=== PATIENT | female | born 1975 | race Hispanic/Latino ===

== ENCOUNTER → 2018-04-25 | Day surgery (SDC) | payer OTHER ==
[2018-04-19 10:02] LABS: BASOPHILS % 0.4 % (0.0-1.0); EOSINOPHILS # (AUTO) 0.1 (0.0-0.4); EOSINOPHILS % 0.9 % (0.0-6.0); HEMATOCRIT 38.9 % (34.2-44.1); HEMOGLOBIN 13.5 g/dL (12.0-16.0); LYMPHOCYTES # (AUTO) 1.6 (1.0-3.2); LYMPHOCYTES % 23.6 % (18.0-39.1); MEAN CORPUSCULAR HEMOGLOBIN 32.3 pg (28-32); MEAN CORPUSCULAR HGB CONC 34.7 g/dL (31-35); MEAN CORPUSCULAR VOLUME 93.1 fL (81-99); MONOCYTES # (AUTO) 0.6 (0.2-0.8); MONOCYTES % 9.3 % (4.4-11.3); NEUTROPHILS # (AUTO) 4.4 (2.1-6.9); NEUTROPHILS % 64.6 % (38.7-80.0); PLATELET COUNT 381 x10e3/uL (140-360); RED BLOOD COUNT 4.18 x10e6/uL (3.6-5.1); RED CELL DISTRIBUTION WIDTH 12.7 % (11.7-14.4)
[2018-04-19 10:05] LABS: INR 0.94; PROTHROMBIN TIME 13.4 seconds (11.9-14.5)
[2018-04-19 10:06] LABS: PARTIAL THROMBOPLASTIN TIME 26.8 seconds (23.8-35.5)
[2018-04-19 10:15] LABS: ALANINE AMINOTRANSFERASE 28 IU/L (0-55); ALBUMIN 4.2 g/dL (3.5-5.0); ALBUMIN/GLOBULIN RATIO 1.3 (0.8-2.0); ALKALINE PHOSPHATASE 65 IU/L (40-150); ANION GAP 13.4 mmol/L (8-16); BLOOD UREA NITROGEN 5 mg/dL (7-26); BUN/CREATININE RATIO 6 (6-25); CALCIUM 9.8 mg/dL (8.4-10.2); CARBON DIOXIDE 24 mmol/L (22-29); CHLORIDE 102 mmol/L (98-107); EST GLOMERULAR FILTRATION RATE > 60 ML/MIN (60-); GLUCOSE 93 mg/dL (74-118); POTASSIUM 3.4 mmol/L (3.5-5.1); SODIUM 136 mmol/L (136-145)
[~2018-04-25] MED LIST: DICYCLOMINE HCL20 MG PO; FENTANYL CITRATE/PF 100MCG/2 ML INJ ONE; Fenofibrate PO; HYOSCYAMINE SULFATE 0.5 MG/ML INJ ONE; METOCLOPRAMIDE HCL 10 MG/2ML VIAL ONE; MIDAZOLAM HCL 2 MG/2 ML VIAL ONE; OMEPRAZOLE40 MG PO; PROPOFOL IV EMULSION 10 MG/ML 50 ML VIAL ONE; TYLENOL325 MG PO; [UNRECOGNIZED DRUG - OTHER]
--- OUTSIDE RECORDS SUMMARY | 2018-04-25 11:42 | XMS REPORT | Clinical Summary ---
Author Author [facility] Organization [facility] Address Unknown Phone Unavailable Care Team Providers Care Combine Operator Name Role Phone PCP Unavailable Allergies No Known Allergies Medications End Date Status Medication Sig Dispensed Refills Start Date Active meclizine (ANTIVERT) 25 Take 1 tablet 60 tablet 1 mg TabIndications: by mouth 3 7 Vertigo times daily as needed (dizziness). Active sucralfate (CARAFATE) 1 Take 1 tablet 40 tablet 0 gram tabletIndications: by mouth 4 7 Gastritis without times daily. bleeding, unspecified chronicity, unspecified gastritis type, H. pylori infection, Generalized abdominal pain Active traMADol (ULTRAM) 50 mg Take 1 tablet 30 tablet 0 tabletIndications: by mouth 8 Generalized abdominal every 6 hours pain as needed for Pain. Active famotidine (PEPCID) 20 mg Take 1 tablet 30 tablet 0 tabletIndications: by mouth 2 8 Generalized abdominal times daily. pain 04/24/2017 Discontinued famotidine (PEPCID) 20 mg Take 1 tablet 14 tablet 0 tabletIndications: by mouth 2 7 Generalized abdominal times daily. pain 04/25/2017 Discontinued clarithromycin (BIAXIN) Take 1 tablet 28 tablet 0 500 mg tabletIndications: by mouth 2 7 Gastritis without times daily bleeding, unspecified for 14 days. chronicity, unspecified gastritis type, H. pylori infection 04/25/2017 Discontinued omeprazole (PRILOSEC) 20 Take 1 28 capsule 0 mg delayed release capsule by 7 capsuleIndications: mouth 2 times Gastritis without daily. bleeding, unspecified chronicity, unspecified gastritis type, H. pylori infection 04/25/2017 Discontinued amoxicillin (AMOXIL) 500 Take 2 56 capsule 0 12/25/201 mg capsuleIndications: capsules by 7 Gastritis without mouth 2 times bleeding, unspecified daily for 14 chronicity, unspecified days. gastritis type, H. pylori infection 04/25/2017 Discontinued bismuth subsalicylate 262 Take by mouth 56 tablet 0 mg ChewIndications: 4 times 7 Gastritis without daily. bleeding, unspecified chronicity, unspecified gastritis type, H. pylori infection 07/18/2017 famotidine (PEPCID) 40 mg Take 1 tablet 30 tablet 0 tabletIndications: by mouth 8 Generalized abdominal daily for 30 pain days. 11/13/2017 ondansetron (ZOFRAN) 4 mg Take 1 tablet 20 tablet 0 tabletIndications: by mouth 8 Generalized abdominal every 8 hours pain as needed for up to 7 days for Nausea. 11/13/2017 Aluminum Hydrox-Magnesium Take 10 mL by 150 mL 0 Carb (GAVISCON) 95-358 mouth every 6 8 mg/15 mL oral hours as suspensionIndications: needed for up Gastroesophageal reflux to 5 days for disease without Indigestion. esophagitis Active Problems Problem Noted Date H. pylori infection 04/24/2017 Abdominal pain 12/11/2016 Chest pain in adult 12/11/2016 Non-intractable vomiting with nausea Vertigo Generalized abdominal pain Gastritis without bleeding Encounters Care Team Description Date Type Specialty Anderson Horner MD 11/11/2017 Emergency Emergency Medicine Denis Núñez MD Gastroesophageal reflux disease without esophagitis (Primary Dx); Upper abdominal pain; Early satiety; Nausea 11/08/2017 Emergency Emergency Medicine Ike Mcelroy PA Generalized abdominal pain (Primary Dx) 11/05/2017 Emergency Emergency Medicine - 11/06/2017 Jaspreet Duran PA Chest pain in adult (Primary Dx); Generalized abdominal pain; Pain of upper abdomen 06/17/2017 Emergency Emergency Medicine - 06/18/2017 Jaspreet Christianson PA Gastritis without bleeding, unspecified chronicity, unspecified gastritis type (Primary Dx); H. pylori infection; Generalized abdominal pain 04/24/2017 Emergency Emergency Medicine - 04/25/2017 after 04/24/2017 Social History Date Tobacco Use Types Packs/Day Years Used Never Smoker Smokeless Tobacco: Never Used Alcohol Use Drinks/Week oz/Week Comments No Sex Assigned at Date Recorded Not on file Industry Job Start Date Occupation Not on file Not on file Not on file Travel End Travel History Travel Start No recent travel history available. Last Filed Vital Signs Time Taken Vital Sign Reading 11/11/2017 1:32 AM CDT Blood Pressure 119/83 11/11/2017 1:32 AM CDT Pulse 94 11/11/2017 1:32 AM CDT Temperature 36.6 C (97.9 F) 11/11/2017 1:32 AM CDT Respiratory Rate 18 11/11/2017 1:32 AM CDT Oxygen Saturation 99% - Inhaled Oxygen - Concentration 11/08/2017 8:55 AM CDT Weight 62.1 kg (136 lb 14.4 oz) - Height - - Body Mass Index - Plan of Treatment Health Maintenance Due Date Last Done Comments Cervical Cancer Scrn (3 1995 Yrs) Breast Cancer Scrn 2014 (Yearly) IMM Influenza Seasonal 01/29/2018Jan to June (>/=19 yrs) Procedures Comments Procedure Name Priority Date/Time Associated Diagnosis 12 LEAD EKG Routine 11/11/2017 1:56 AM CDT BEDSIDE ULTRASOUND Routine 11/08/2017 Upper abdominal pain 12:46 PM CDT Nausea UA CHEMISTRIES STAT 11/08/2017 10:35 AM CDT VBG POC Routine 11/08/2017 10:26 AM CDT BMP POC Routine 11/08/2017 10:25 AM CDT LIVER PROFILE STAT 11/08/2017 10:20 AM CDT LIPASE STAT 11/08/2017 10:[address] ABDOMEN AND PELVIS STAT 11/05/2017 Generalized abdominal CONTRAST 2:08 PM CDT pain BMP POC Routine 11/05/2017 11:09 AM CDT HIV-1/HIV-2 ROUTINE STAT 11/05/2017 SCREENING 11:04 AM CDT LIPASE STAT 11/05/2017 11:04 AM CDT LIVER PROFILE STAT 11/05/2017 11:04 AM CDT CBC/DIFF STAT 11/05/2017 11:04 AM CDT URINE CULTURE Routine 11/05/2017 10:58 AM CDT TEST STAT 11/05/2017 10:58 AM CDT UA CHEMISTRIES STAT 11/05/2017 10:58 AM CDT 12 LEAD EKG Routine 11/05/2017 10:[address] ABDOMEN AND PELVIS STAT 06/18/2017 Pain of upper abdomen CONTRAST 4:45 AM ESCAPEMENT MAKER XRAY CHEST 2 VIEWS STAT 06/18/2017 Chest pain in adult 12:45 AM ESCAPEMENT MAKER 12 LEAD EKG STAT 06/18/2017 12:10 AM ESCAPEMENT MAKER TROPONIN I POC Routine 06/18/2017 12:03 AM ESCAPEMENT MAKER TEST STAT 06/18/2017 12:00 AM ESCAPEMENT MAKER UA CHEMISTRIES STAT 06/18/2017 12:00 AM ESCAPEMENT MAKER BMP POC Routine 06/17/2017 11:16 PM ESCAPEMENT MAKER LIPASE STAT 06/17/2017 10:50 PM ESCAPEMENT MAKER LIVER PROFILE STAT 06/17/2017 10:50 PM ESCAPEMENT MAKER CBC/DIFF STAT 06/17/2017 10:50 PM ESCAPEMENT MAKER OCCULT BLOOD ICT STAT 04/24/2017 10:37 PM ESCAPEMENT MAKER BMP POC Routine 04/24/2017 5:04 PM ESCAPEMENT MAKER 12 LEAD EKG Routine 04/24/2017 5:02 PM ESCAPEMENT MAKER LIVER PROFILE STAT 04/24/2017 5:02 PM ESCAPEMENT MAKER LIPASE STAT 04/24/2017 5:02 PM ESCAPEMENT MAKER CBC/DIFF STAT 04/24/2017 5:02 PM ESCAPEMENT MAKER UA CHEMISTRIES STAT 04/24/2017 5:01 PM ESCAPEMENT MAKER after 04/24/2017 Results * 12 LEAD EKG (11/11/2017 1:56 AM CDT) 12 LEAD EKG FOR [facility] Hari Hubbard [facility] Test Date:2017-11-11 Pat Name: AMANDA Whytepartment: Room: Gender: F Rn Access: [id number] :1976-0 06-04 Requested By: Order Number: Abdirizak kaye MD: Víctor West Measurements Intervals Harmony Rate: 90 P:55 WV: 178 QRS: 53 QRSD: 94 T:44 QT: 352 QTc:432 Interpretive Statements SINUS RHYTHM INCOMPLETE RIGHT BUNDLE BRANCH BLOCK NONSPECIFIC T WAVE ABNORMALITY Electronically Signed On 11-15-17 16:13:43 CDT by Víctor West Performing Organization Address City/State/Zipcode Phone Number SMS * BEDSIDE ULTRASOUND (11/08/2017 12:46 PM CDT) Narrative Performed At Fred Chaudhari NP 11/08/20171:04 PM Bedside Ultrasound Date/Time: 11/08/2017 12:59 PM Performed by: FRED CHAUDHARI Authorized by: FRED CHAUDHARI Consent: Consent obtained:Verbal Indications: Indications:Epigastric, upper abdominal pain; visualize gallbladder Post-procedure details: Patient tolerance of procedure:Tolerated well, no immediate complications Comments: No sonographic barron's sign, no stones/sludge, no wall thickening, no perichole fluid * UA CHEMISTRIES (11/08/2017 10:35 AM CDT) Only the most recent of 4 results within the time period is included. Color Straw [facility] 2 Clarity Clear [facility] 2 Spec [place] 1.004 1.001 - 1.035 [facility] 2 pH 7.0 5 - 8 [facility] 2 Protein Negative NEG [facility] 2 Glucose Negative NEG [facility] 2 Ketone Negative NEG [facility] 2 Bilirubin Negative NEG [facility] 2 Nitrate Negative NEG [facility]IN-STATION 2 Urobilinogen <1.0 0.2 - 1.0 EU/dL [facility]IN-STATION 2 Leukocyte Negative NEG [facility] 2 Blood Negative NEG [facility] 2 Specimen Urine Performing Organization Address [facility] Phone Number MISYS [facility] MAINSTATION 2 * VBG POC (11/08/2017 10:26 AM CDT) pH, James POC 7.40 7.33 - 7.43 [facility]IN-[facility]ATION 1 pCO2, James POC 44.7 38.0 - 50.0 mm Hg [facility] 1 pO2, James POC 19 (L) 50 - 75 mm Hg [facility] 1 Base Excess, 3 mmol/L [facility] POC MAIN-STATION 1 HCO3, James POC 28.0 (H) 22.0 - 26.0 mmol/L [facility] 1 % Sat, James POC 29 (L) 60 - 85 % [facility] 1 Lactic Acid, 1.25 0.4 - 2.0 mmol/L [facility] POC MAIN[facility]ATION 1 TCO2, JAMES POC 29 21 - 32 mmol/L [facility] MAIN-STATION 1 Performing Organization Address [facility] Phone Number [facility] 1 * BMP POC (11/08/2017 10:25 AM CDT) Only the most recent of 4 results within the time period is included. CO2 POC 26 21 - 32 mmol/L [facility] MAIN-STATION 1 Chloride POC 100 98 - 107 mmol/L [facility] 1 Potassium POC 4.1 3.50 - 5.10 mmol/L [facility] 1 Sodium POC 139 136 - 145 mmol/L [facility] 1 Glucose POC 85 74 - 106 mg/dL [facility] 1 Urea Nitrogen <3 (L) 7 - 18 mg/dL [facility] POC [facility] 1 Creatinine POC 0.5 (L) 0.6 - 1.3 mg/dL [facility] 1 Calcium Ionized 1.24 1.15 - 1.29 mmol/L [facility] POC [facility] 1 Hemoglobin POC 15.0 12.0 - 16.0 g/dL [facility] 1 Hematocrit POC 44.0 37.0 - 47.0 % [facility] MAIN-STATION 1 GFR, Estimated >60 mL/min/1.73 m2 [facility] MAIN-STATION 1 GFR, Estim, >60 mL/min/1.73 m2 LB Afr-Am MAIN-STATION 1 Performing Organization Address [facility] Phone Number MISYS [facility] MAIN-STATION 1 * LIVER PROFILE (11/08/2017 10:20 AM CDT) Only the most recent of 4 results within the time period is included. T Protein 8.8 (H) 6.4 - 8.2 g/dL [facility]IN-STATION 4 Albumin 4.4 3.4 - 5.0 g/dL [facility]IN-STATION 4 T Bilirubin 0.4 0.2 - 1.0 mg/dL [facility] 4 Alk Phos 124 (H) 45 - 117 U/L [facility]IN[facility]STATION 4 AST 34 15 - 37 U/L [facility] 4 ALT 98 (H) 12 - 78 U/L [facility] 4 D Bilirubin <0.1 0.0 - 0.2 mg/dL [facility] 4 Specimen Blood Performing Organization Address [facility] Phone Number MISYS [facility] MAIN-STATION 4 * LIPASE (11/08/2017 10:20 AM CDT) Only the most recent of 4 results within the time period is included. Lipase 146 73 - 393 U/L [facility]IN-[facility]ATION 4 Specimen Blood Performing Organization Address [facility] Phone Number MISYS [facility] MAIN-STATION 4 * CT ABDOMEN AND PELVIS CONTRAST (11/05/2017 2:08 PM CDT) Only the most recent of 2 results within the time period is included. Impressions Performed At IMPRESSION: SMS 1.No acute intra-abdominal or intrapelvic abnormalities. 2.Persistent cystic structure in the left adnexa which measure approximately 3.2 cm (compared to 2.[address] 12/12/2016) could represent left hydrosalpinx versus left ovarian/paraovarian cyst. Nonemergent follow-up pelvic ultrasound could be of help. 3.Prominent right ureter, most likely related to distended urinary bladder. If the report is "FINALIZED" it indicates that the attending/staff radiologist has reviewed the images and agrees with the resident's interpretation. Dictated By: Harika Jiang MD, 11/05/2017 3:16 PM I have reviewed the study and agree with the findings in this report. Signed By: Clifton Bay MD, 11/05/2017 3:34 PM Narrative Performed At EXAM: CT Abdomen and pelvic WITH contrast SMS INDICATION: abdominal pain COMPARISON: Abdomen CT 06/18/2017 TECHNIQUE: Abdomen and pelvis were scanned utilizing a multidetector helical scanner from the lung base to the pubic symphysis after administration of IV contrast. Coronal and sagittal reformations were obtained. Routine protocol was performed. Scan was performed when during portal venous phase. IV CONTRAST: 150 mL of Omnipaque 300 ORAL CONTRAST: Water COMPLICATIONS: None RADIATION DOSE: Total DLP: 682 mGy*cm Estimated effective dose: (DLP x 0.015 x size factor) mSv CTDIvol has been reviewed. It is below the limits set by the Radiation Protocol Committee (RPC). FINDINGS: LINES and TUBES: None. LOWER THORAX:Minimal subsegmental atelectasis in the right middle lobe. Otherwise, unremarkable. HEPATOBILIARY:No focal hepatic lesions. No biliary ductal dilation. GALLBLADDER: No radio-opaque stones or sludge.No wall thickening. SPLEEN: No splenomegaly. PANCREAS: No focal masses or ductal dilatation. ADRENALS: No adrenal nodules KIDNEYS/URETERS: Kidneys enhance symmetrically.No hydronephrosis. Prominent right ureter.No cystic or solid mass lesions.No stones. GI TRACT: No abnormal distention, wall thickening, or evidence of bowel obstruction. Appendix is normal. Moderate volume of stool within the colon. PELVIC ORGANS/BLADDER: Mildly distended urinary bladder. Persistent cystic structure in the left adnexa measuring approximately 3.2 cm. LYMPH NODES: No lymphadenopathy. VESSELS: Unremarkable. PERITONEUM / RETROPERITONEUM: No free air or fluid. BONES: Unremarkable. SOFT TISSUES: Unremarkable. Procedure Note Interface, Rad/Mammog In - 11/05/2017 3:39 PM CDT EXAM: CT Abdomen and pelvic WITH contrast INDICATION: abdominal pain COMPARISON: Abdomen CT 06/18/2017 TECHNIQUE: Abdomen and pelvis were scanned utilizing a multidetector helical scanner from the lung base to the pubic symphysis after administration of IV contrast. Coronal and sagittal reformations were obtained. Routine protocol was performed. Scan was performed when during portal venous phase. IV CONTRAST: 150 mL of Omnipaque 300 ORAL CONTRAST: Water COMPLICATIONS: None RADIATION DOSE: Total DLP: 682 mGy*cm Estimated effective dose: (DLP x 0.015 x size factor) mSv CTDIvol has been reviewed. It is below the limits set by the Radiation Protocol Committee (RPC). FINDINGS: LINES and TUBES: None. LOWER THORAX: Minimal subsegmental atelectasis in the right middle lobe. Otherwise, unremarkable. HEPATOBILIARY: No focal hepatic lesions. No biliary ductal dilation. GALLBLADDER: No radio-opaque stones or sludge. No wall thickening. SPLEEN: No splenomegaly. PANCREAS: No focal masses or ductal dilatation. ADRENALS: No adrenal nodules KIDNEYS/URETERS: Kidneys enhance symmetrically. No hydronephrosis. Prominent right ureter. No cystic or solid mass lesions. No stones. GI TRACT: No abnormal distention, wall thickening, or evidence of bowel obstruction. Appendix is normal. Moderate volume of stool within the colon. PELVIC ORGANS/BLADDER: Mildly distended urinary bladder. Persistent cystic structure in the left adnexa measuring approximately 3.2 cm. LYMPH NODES: No lymphadenopathy. VESSELS: Unremarkable. PERITONEUM / RETROPERITONEUM: No free air or fluid. BONES: Unremarkable. SOFT TISSUES: Unremarkable. IMPRESSION IMPRESSION: 1. No acute intra-abdominal or intrapelvic abnormalities. 2. Persistent cystic structure in the left adnexa which measure approximately 3.2 cm (compared to 2.[address] 12/12/2016) could represent left hydrosalpinx versus left ovarian/paraovarian cyst. Nonemergent follow-up pelvic ultrasound could be of help. 3. Prominent right ureter, most likely related to distended urinary bladder. If the report is "FINALIZED" it indicates that the attending/staff radiologist has reviewed the images and agrees with the resident's interpretation. Dictated By: Harika Jiang MD, 11/05/2017 3:16 PM I have reviewed the study and agree with the findings in this report. Signed By: Clifton Bay MD, 11/05/2017 3:34 PM Performing Organization Address [facility] Phone Number SMS * HIV-1/HIV-2 ROUTINE SCREENING (11/05/2017 11:04 AM CDT) HIV-1/HIV-2 Negative NEG BT OUTPATIENT DRAW 2 Performing Organization Address City/[facility] Phone Number MISYS BT OUTPATIENT DRAW 2 * CBC/DIFF (11/05/2017 11:04 AM CDT) Only the most recent of 3 results within the time period is included. WBC 8.1 4.5 - 11.0 K/uL [facility] MAIN-STATION 2 RBC 4.21 4.20 - 5.40 M/uL [facility] 2 Hemoglobin 13.8 12.0 - 16.0 g/dL [facility]IN[facility] 2 Hematocrit 39.2 37.0 - 47.0 % BT [facility]IN[facility] 2 MCV 93 (H) 82 - 92 fL [facility]IN[facility]STATION 2 MCH 32.8 (H) 27.0 - 32.0 pg BT [facility]IN-STATION 2 MCHC 35.2 32.0 - 36.0 g/dL [facility] 2 RDW 43.7 36.4 - 46.3 fL BT [facility]IN[facility]STATION 2 Platelet 424 (H) 150 - 400 K/uL [facility] MAIN-STATION 2 Mean Platelet 10.2 9.4 - 12.4 fL BT [facility]ATION Volume 2 Percent NRBC 0.0 BT MAIN-STATION 2 Absolute NRBC 0.00 BT MAIN-STATION 2 Neutrophil 70.6 (H) 34.0 - 70.0 % BT MAIN-STATION 2 Lymphocyte 19.1 (L) 20.0 - 50.0 % BT MAIN-STATION 2 Monocyte 8.4 5.0 - 12.0 % BT MAIN-STATION 2 Eosinophil 0.4 (L) 0.7 - 5.0 % BT MAIN-STATION 2 Basophil 0.4 0.1 - 1.2 % BT MAIN-STATION 2 Pct Immat Gran 1.1 (H) 0.0 - 0.5 BT MAIN-STATION 2 Neutrophil, Abs 5.73 1.56 - 6.13 K/uL BT MAIN-STATION 2 Lymphocyte, Abs 1.55 1.18 - 3.74 K/uL BT MAIN-STATION 2 Monocyte, Abs 0.68 (H) 0.24 - 0.36 K/uL BT MAIN-STATION 2 Eosinophil, Abs 0.03 (L) 0.04 - 0.36 K/uL BT MAIN-STATION 2 Basophil, Abs 0.03 0.01 - 0.08 K/uL BT MAIN-STATION 2 Absol Immat 0.09 (H) 0.00 - 0.03 K/uL BT MAIN-STATION Gran 2 Specimen Blood Performing Organization Address [facility] Phone Number CARLAYS BT MAIN-STATION 2 * TEST (11/05/2017 10:58 AM CDT) Only the most recent of 2 results within the time period is included. Negative BT MAIN-STATION 3 Specimen Urine Performing Organization Address [facility] Phone Number LAURA BT MAIN-STATION 3 * URINE CULTURE (11/05/2017 10:58 AM CDT) Spec Clean catch urine BT MICROBIOLOGY Description Order Comments None BT MICROBIOLOGY Culture Resembles mixed uro-genital BT MICROBIOLOGY nae Report Status Final 11/07/2017 BT MICROBIOLOGY Specimen Urine clean catch Performing Organization Address [facility] Phone Number LAURA BT MICROBIOLOGY * 12 LEAD EKG (11/05/2017 10:56 AM CDT) 12 LEAD EKG FOR [facility] Test Date:2017-11-05 [facility]: Gender: F Rn Access: [id number] :1976-0 2-04 Requested By: Order Number: [id number] kaye MD: Marisa Wilson Measurements Intervals Harmony Rate: 93 P:66 WV: 151 QRS: 56 QRSD: 88 T:43 QT: 325 QTc:405 Interpretive Statements SINUS RHYTHM Electronically Signed On 11-05-17 11:44:07 CDT by Marisa Wilson Performing Organization Address [facility] Phone Number SMS * XRAY CHEST 2 VIEWS (06/18/2017 12:45 AM ESCAPEMENT MAKER) Impressions Performed At IMPRESSION: [facility] No acute thoracic abnormality. Dictated By: Kalyani Moore MD, 06/18/2017 12:44 AM I have reviewed the study and agree with the findings in this report. Signed By: Breanna Alston MD, 06/18/2017 2:35 AM Narrative Performed At EXAMINATION:XRAY CHEST 2 VIEWS, Frontal and lateral [facility] INDICATION: cp COMPARISON:Chest radiograph 12/11/2016 FINDINGS: TUBES/LINES:None LUNGS:No consolidations or edema. PLEURA:No effusions or pneumothorax. HEART/MEDIASTINUM:Normal cardiomediastinal silhouette. MUSCULOSKELETAL:No acute findings. UPPER ABDOMEN: Normal Procedure Note Interface, Rad/Mammog In - 06/18/2017 2:40 AM ESCAPEMENT MAKER EXAMINATION: XRAY CHEST 2 VIEWS, Frontal and lateral INDICATION: cp COMPARISON: Chest radiograph 12/11/2016 FINDINGS: TUBES/LINES: None LUNGS: No consolidations or edema. PLEURA: No effusions or pneumothorax. HEART/MEDIASTINUM: Normal cardiomediastinal silhouette. MUSCULOSKELETAL: No acute findings. UPPER ABDOMEN: Normal IMPRESSION IMPRESSION: No acute thoracic abnormality. Dictated By: Kalyani Moore MD, 06/18/2017 12:44 AM I have reviewed the study and agree with the findings in this report. Signed By: Breanna Alston MD, 06/18/2017 2:35 AM Performing Organization Address [facility] Phone Number SMS * 12 LEAD EKG (06/18/2017 12:10 AM ESCAPEMENT MAKER) 12 LEAD EKG FOR [facility] Test Date:2017-06-18 Pat Name: [facility]ANDA [facility]S [facility] Room: Gender: F Rn Access: :1976-0 2-04 Requested By: Order Number: [id number] mikki MD: Kena Bray MD Measurements Intervals Harmony Rate: 89 P:67 WV: 191 QRS: 68 QRSD: 86 T:59 QT: 351 QTc:428 Interpretive Statements SINUS RHYTHM Electronically Signed On 06-19-17 10:17:42 ESCAPEMENT MAKER by Kena Bray MD Performing Organization Address [facility] Phone Number SMS * TROPONIN I POC (06/18/2017 12:03 AM ESCAPEMENT MAKER) Troponin POC 0.01 0.00 - 0.08 ng/mL BT MAIN-STATION 1 Performing Organization Address [facility] Phone Number MISYS BT MAIN-STATION 1 * OCCULT BLOOD ICT (04/24/2017 10:37 PM ESCAPEMENT MAKER) Occult Blood Negative NEG BT MICROBIOLOGY ICT Specimen Stool Performing Organization Address [facility] Phone Number MISYS BT MICROBIOLOGY * 12 LEAD EKG (04/24/2017 5:02 PM ESCAPEMENT MAKER) 12 LEAD EKG FOR [facility] Test Date:2017-04-24 Pat Name: AMANDA CARDENAS LAZODepartment: Room: Gender: F Rn Access: [id number] :[birth year] Requested By: Order Number: [id number] kaye MD: Shakeel Che M.D. Measurements Intervals Harmony Rate: 100 P: 60 WV: 135 QRS: 77 QRSD: 79 T:68 QT: 328 QTc:424 Interpretive Statements SINUS TACHYCARDIA ABNORMAL RHYTHM ECG Electronically Signed On 04-24-17 17:24:43 ESCAPEMENT MAKER by Shakeel Che M.D. Performing Organization Address City/State/Zipcode Phone Number SMS after 04/24/2017 Insurance Type Payer Benefit Subscriber ID Effective Phone Address Plan / Dates Group [facility] xxxxxxxxxxxx 2017-P [phone] [id number] [facility] [place] [phone]
--- OUTSIDE RECORDS SUMMARY | 2018-04-25 11:42 | XMS REPORT ---
[facility] Address Unknown Phone Unavailable Care Team Providers Care [employer] Name Role Phone UNKNOWN, REFFERING PP Unavailable MARISA, TOY Unavailable Unavailable Problems This patient has no known problems. Allergies, Adverse Reactions, Alerts This patient has no known allergies or adverse reactions. Medications This patient has no known medications. Encounters Start Date/Time End Date/Time Encounter Type Admission Type Attending [facility] Facility Care Department Encounter ID 2017-11-11 04:30:34 2017-11-11 04:30:34 Emergency [facility] [id number] 2017-11-08 09:44:26 2017-11-08 09:44:26 Emergency [facility] [id number] 2017-11-05 22:40:57 2017-11-05 22:40:57 Emergency [facility] [id number] 2017-11-05 13:15:01 2017-11-05 13:15:01 Outpatient [facility] [id number] 2017-06-18 03:39:37 2017-06-18 03:39:37 Emergency [facility] [id number] 2017-06-18 00:33:30 2017-06-18 00:33:30 Emergency [facility] [id number] 2017-06-17 22:13:48 2017-06-17 22:13:48 Emergency [facility] [id number] 2017-04-24 19:05:48 2017-04-24 19:05:48 [facility] [id number] 2016-12-12 02:10:15 2016-12-12 02:10:15 Emergency [facility] [id number] 2016-12-12 01:46:43 2016-12-12 01:46:43 Emergency [facility] [id number] 2016-12-11 23:40:06 2016-12-11 23:40:06 Emergency [facility] [id number] 2016-12-11 23:12:38 2016-12-11 23:12:38 Emergency [facility] [id number] Results Test Description Test Time Test Comments Text Results Atomic Results Result Comments BREAST ULTRASOUND BILATERAL 2018-03-27 15:04:07 - BREAST ULTRASOUND BILATERALULTRASOUND OF BOTH BREASTS AND BOTH AXILLA: 03/27/2018CLINICAL: Abnormal mammogram. Comparison is made to exam dated 02/24/2018 mammogram - [facility] Real-time ultrasound of both breasts and both axilla was performed. There is a 1.2 cm oval mass in the left breast at 11 o'clock, 5 cm from the nipple. Color flow imaging demonstrates that there is no increase in vascularity. No abnormalities were seen sonographically in either axilla. Benign cysts and dilated ducts were seen bilaterally. Clinical breast exam was unremarkable. IMPRESSION: PROBABLY BENIGN - FOLLOW-UP RECOMMENDEDThe 1.2 cm oval mass in the left breast is probably benign. A follow-up mammogram and an ultrasound in 6 months is recommended to demonstrate stability. Iris Zelaya dm/:03/27/2018 15:04:07 Farmworker Fur: Radha Vasquez RDMS , [facility]: Short Term Follow Up Ultrasound BI-RADS: 3 Probably benign DIAG MAMM RIGHT YKOASTA CAD DIGITAL 2018-03-27 15:02:33 - DIAG MAMM RIGHT YOKASTA CAD DIGITALUNILATERAL RIGHT DIGITAL DIAGNOSTIC MAMMOGRAM 3D/2D WITH CAD: 03/27/2018CLINICAL: Recall from screening. Digital breast tomosynthesis was performed in addition to routine CC and MLO views. Current mammographic images were evaluated by either a Bustle M-Vu or a incrediblue ImageChecker CAD (computer aided detection system). Comparison is made to exam dated [facility] The tissue of the right breast is heterogeneously dense. This may lower the sensitivity of mammography. No suspicious mass, architectural distortion, malignant type calcification, or lymph node abnormality detected. IMPRESSION: INCOMPLETE ASSESSMENT: ADDITIONAL IMAGING EVALUATION RECOMMENDEDUltrasound pending for additional evaluation. Iris Hall M.D. dm/penrad:03/27/2018 15:02:33 Entry: - 03/27/2018 15:05:24Imaging Technologist: Conchita Petty , [facility]ENTERMamm[facility] BI-RADS: 0 Indeterminate SCR MAMM BILATERAL YOKASTA CAD DIGITAL 2018-02-26 13:48:37 - SCR MAMM BILATERAL YOKASTA CAD DIGITALBILATERAL FIRST EVER DIGITAL SCREENING MAMMOGRAM 3D/2D WITH CAD: 02/24/2018CLINICAL: Asymptomatic. Digital breast tomosynthesis was performed in addition to routine CC and MLO views. Current mammographic images were evaluated by either a VuCOMP M-Vu or a incrediblue ImageChecker CAD (computer aided detection system). No prior exams were available for comparison. B aseline.The breasts are heterogeneously dense which may obscure small masses.There is a 3 mm asymmetry in the medial right breast at anterior depth seen on the craniocaudal view only 3 cm from the nipple. No other significant masses, calcifications, or other findings are seen in either breast. IMPRESSION: INCOMPLETE ASSESSMENT: ADDITIONAL IMAGING EVALUATION RECOMMENDEDThe 3 mm asymmetry in the medial right breast at anterior depth is indeterminate. Additional views with possible ultrasound are recommended. Shona Parnell D.O. al/:02/26/2018 13:48:37 Farmworker Fur: Kristie Matthews, [facility]-FWletter sent: Additional Imaging Mammogram BI-RADS: 0 Indeterminate SCR MAMM BILATERAL YOKASTA CAD DIGITAL 2018-02-26 13:48:37 - SCR MAMM BILATERAL YOKASTA CAD DIGITALBILATERAL FIRST EVER DIGITAL SCREENING MAMMOGRAM 3D/2D WITH CAD: 02/24/2018CLINICAL: Asymptomatic. Digital breast tomosynthesis was performed in addition to routine CC and MLO views. Current mammographic images were evaluated by either a VuCOMP M-Vu or a incrediblue ImageChecker CAD (computer aided detection system). No prior exams were available for comparison. B aseline.The breasts are heterogeneously dense which may obscure small masses.There is a 3 mm asymmetry in the medial right breast at anterior depth seen on the craniocaudal view only 3 cm from the nipple. No other significant masses, calcifications, or other findings are seen in either breast. IMPRESSION: INCOMPLETE ASSESSMENT: ADDITIONAL IMAGING EVALUATION RECOMMENDEDThe 3 mm asymmetry in the medial right breast at anterior depth is indeterminate. Additional views with possible ultrasound are recommended. Shona becerril/:02/26/2018 13:48:37 Farmworker Fur: Kristie Matthews, [facility]FWletter sent: Additional Imaging Mammogram BI-RADS: 0 Indeterminate [id number]&PELVIS W/CONTRAST 2017-02-12 07:14:33 DICTATION LOCATION: [id number] INFORMATION:Abd pain-RLQ, and LLQ COMPARISON: None availablePROCEDURE: CT of the Abdomen and Pelvis was performed with intravenous contrast. Intravenous contrast: 100 ml Isovue 300 Oral contrast: positive contrast was administered.Sagittal and coronal reformats were performed.One or more of the following dose reduction techniques were used:Automated exposure control, adjustment of the mA and/or kV according topatient size, and/or utilization of iterative reconstruction technique. FINDINGS:LOWER CHEST: Within normal limits.LIVER: Within normal limits.BILE DUCTS: Normal caliber.GALLBLADDER: Within normal limits.SPLEEN: Within normal limits.PANCREAS: Within normal limits.ADRENALS: Within normal limits.KIDNEYS/URETERS: Within normal limits.BLADDER: Interval bladder wall thickening, most evident at the dome.REPRODUCTIVE ORGANS: Small amount of fluid and fat stranding within thepelvis.BOWEL: No bowel obstruction. Appendix is remarkablePERITONEUM: No ascites.VESSELS: Within normal limits.RETROPERITONEUM: No lymphadenopathy. ABDOMINAL WALL: Within normal limits.BONES: Within normal limits.IMPRESSION: Pelvic fat stranding and trace ascites. There is also wall thickening atthe urinary bladder dome. Urologic or gynecologic infection/inflammationis suspected. Urinalysis Complete 2017-02-12 03:01:00 Color (test code=COLOR) Straw Yellow,Straw,Pl yellow Clarity (test code=CLAR) Clear Clear Specific Geary (test code=SPGR) 1.002 1.001-1.035 pH (test code=PH) 7.0 5.0-9.0 Ketone (test code=KET) Negative mg/dL Negative Glucose (test code=GLUCUR) Negative mg/dL Negative Protein (test code=PROT) Negative mg/dL Negative Bilirubin (test code=BILI) Negative mg/dL Negative Occult Blood (test code=UDOB) Small Negative Urobilinogen (test code=UROB) 0.2 mg/dL 0.2-1.0 Nitrite (test code=NIT) Negative Negative Leuk Esterase (test code=LEUK) Large Negative Micros Exam (test code=MEXAM) Indicated Epithelial Cells (test code=EPI) Few /LPF 0-30 WBC, Urine (test code=UWBC) 6-10 /HPF 0-5 RBC, Urine (test code=URBC) 3-5 /HPF 0-5 Bacteria (test code=BACT) Few /HPF CBC with [id number] 02:46:00* Test Item Value Reference Range Comments WBC (test code=WBC) 9.1 K/cumm 4.4-10.5 RBC (test code=RBC) 4.14 M/cumm 3.75-5.20 Hemoglobin (test code=HGB) 12.6 gm/dL 12.2-14.8 Hematocrit (test code=HCT) 37.8 % 36.5-44.4 MCV (test code=MCV) 91.4 fL 80-100 MCH (test code=MCH) 30.4 pg 27.0-32.5 MCHC (test code=MCHC) 33.2 g/dL 32.0-37.5 RDW (test code=RDW) 13.0 % 11.5-14.5 Platelet Count (test code=PLTCT) 434 K/cumm 140-440 MPV (test code=MPV) 8.5 fL Diff Method (test code=DIFFM) Auto Neutrophil (test code=NEUT) 66.6 % 36-70 Lymphocyte (test code=LYMPH) 25.2 % 12-44 Monocyte (test code=MONO) 7.2 % 0-11 Eosinophil (test code=EOS) 0.7 % 0-7 Basophil (test code=BASO) 0.2 % 0-2 Neutro Abs (test code=ANEUT) 6.0 K/cumm 1.6-7.4 Lymph Abs (test code=ALYMPH) 2.3 K/cumm 0.5-4.6 [place] Abs (test code=AMONO) 0.7 K/cumm 0.0-1.2 Eos Abs (test code=AEOS) 0.06 K/cumm 0.00-0.74 Baso Abs (test code=ABASO) 0.0 K/cumm 0.00-0.21 [id number] 02:44:00* Test Item Value Reference Range Comments Lipase (test code=LIP) 33 U/L 13-60 Comprehensive Metabolic [id number] 02:44:00* Test Item Value Reference Range Comments Sodium (test code=NA) 137 mmol/L 135-145 Potassium (test code=K) 3.8 mmol/L 3.5-5.1 Chloride (test code=CL) 100 mmol/L 98-105 Carbon Dioxide (test code=CO2) 24 mmol/L 22-29 Glucose (test code=GLU) 94 mg/dL 70-115 Blood Urea Nitrogen (test code=BUN) 6 mg/dL 6-20 Creatinine (test code=CREAT) 0.7 mg/dL 0.5-0.9 Calcium (test code=CA) 9.7 mg/dL 8.3-10.5 Prot Total (test code=TP) 7.4 g/dL 6.4-8.3 Albumin (test code=ALB) 4.2 g/dL 3.5-5.2 A/G Ratio (test code=AGRATIO) 1.3 Ratio Globulin (test code=GLOB) 3.2 2.9-3.1 Bili Total (test code=TBIL) 0.2 mg/dL 0.1-0.9 Alk Phos (test code=APHOS) 125 U/L 35-104 AST (test code=AST) 14 U/L 1-32 ALT (test code=ALT) 12 U/L 1-33 BUN/Creatinine Ratio (test code=BCRATIO) 8.6 Anion Gap (test code=AGAP) 13 mmol/L 7-16 Estimated GFR (test code=GFR) >60 mL/min/1.73m2 eGFR (estimated Glomerular Filtration Rate) is an estimated value,calculated from the patient's serum creatinine using the MDRD equation.It is NOT the patient's actual GFR. The eGFR provides a more clinicallyuseful measure of kidney disease than serum creatinine alone.This calculation takes sex and race into account, if the informationis provided. If the race is not provided, and the patient isAfrican-Chilean, multiply by 1.212. If sex is not provided, and thepatient is female, multiply by 0.742. Results for patients <18 years ofage have not been validated by the MDRD study and should be interpretedwith caution.eGFR Result Interpretation:eGFR > or=60 is in the Normal RangeeGFR < 60 may mean kidney diseaseeGFR < 15 may mean kidney failureRanges recommended by the National Kidney Foundat ion,http://nkdep.nih.gov
[2018-04-25 14:30] VITALS: BP 107/75
[2018-04-25 14:46] LABS: WBC,FECAL (FECAL LACTOFERRIN) NEGATIVE (NEGATIVE)
--- NOTE | 2018-04-25 15:43 | Operative Report ---
DATE OF PROCEDURE: April 25, 2018 REFERRING PHYSICIAN: Dr. Lizzie Emerson PROCEDURES PERFORMED: Esophagogastroduodenoscopy with esophageal dilatation and biopsies and a colonoscopy with biopsies. INDICATIONS FOR ESOPHAGOGASTRODUODENOSCOPY: Dysphagia to solids, heartburn and bloating. INDICATIONS FOR COLONOSCOPY: Lower abdominal pain, chronic intermittent diarrhea alternating with constipation. MEDICATION: Patient was done under MAC. Please see anesthesiologist's note. PROCEDURE: With patient in the left lateral decubitus position, flexible fiberoptic Olympus gastroscope was introduced into the esophagus under direct visualization without any difficulty. There was some patchy erythema noted in the distal esophagus. Esophagus was then dilated to a size 52-German Montalvo. The scope was then advanced with ease into the stomach and mucosa overlying the antrum and the body revealed some diffuse erythema, low-grade to moderate edema and biopsies were obtained. The pylorus was of normal contour and shape. It was intubated with ease and the scope was advanced all the way to the 2nd portion of the duodenum. Biopsies were obtained from the proximal 2nd portion and the duodenal bulb to rule out sprue. The scope was then withdrawn back into the stomach and retroflexed. Mucosa overlying the fundus and the cardia appeared to be within normal limits. The scope was then straightened out. It was subsequently withdrawn. Patient tolerated the procedure well. IMPRESSION: 1. Distal esophagitis, mild. 2. Gastritis, biopsied. Biopsy sent stain for H. pylori. 3. Rule out sprue. PLAN: Follow up histology. Increase Protonix to 40 mg 1 p.o. a.c. b.i.d. PROCEDURE: Patient was then turned around and after adequate lubrication of the anal canal a flexible fiberoptic Olympus colonoscope was inserted into the rectum with ease and advanced all the way to the cecum. Mucosa overlying the cecum appeared to be within normal limits. The ileocecal valve was intubated and the scope was advanced into the terminal ileum. Biopsies were obtained. The scope was then withdrawn back into the colon. It was then withdrawn slowly. Mucosa overlying the ascending and transverse appeared to be within normal limits. There was some patchy mild inflammatory changes noted throughout the left colon as well as the rectum and random biopsies were obtained. The scope was then retroflexed into the distal rectum and small internal hemorrhoids were noted, none of which was actively bleeding. The scope was then straightened out. It was subsequently withdrawn after securing an adequate stool specimen that was sent for the appropriate stool studies. Patient tolerated procedure well. IMPRESSION 1. Patchy mild left-sided colitis. 2. Proctitis, mild. 3. Internal hemorrhoids, none actively bleeding. PLAN: Follow up histology. Follow up stool studies. Continue Bentyl 20 mg 1 p.o. t.i.d. Add VSL#3 one p.o. daily. The patient might benefit from a followup colonoscopy in 5-10 years. Job#: [id number] cc:LIZZIE EMERSON MD
[2018-04-26 14:57] LABS: C DIFFICILE TOXIN A&B AMP PROB **POSITIVE** (NEGATIVE)
== END | disposition home or self-care (01) ==
LOC: OR 11:39
PROVIDERS: ATTEND Internal Medicine Gastroenterology
DX: K29.60 Other gastritis without bleeding (principal); K20.9 Esophagitis, unspecified; K51.50 Left sided colitis without complications; K63.89 Other specified diseases of intestine; K21.9 Gastro-esophageal reflux disease without esophagitis; K62.89 Other specified diseases of anus and rectum; K59.00 Constipation, unspecified; K64.8 Other hemorrhoids; R63.4 Abnormal weight loss; K76.9 Liver disease, unspecified; F32.9 Major depressive disorder, single episode, unspecified; F41.9 Anxiety disorder, unspecified; Z01.812 Encounter for preprocedural laboratory examination
CPT/HCPCS: 36415; 43239; 43450; 45380; 80053; 83630; 83993; 85025; 85610; 85730; 87045; 87177; 87328; 87493; J1980; J2250; J2765